=== PATIENT | female | born 1995 | race Caucasian/White ===

== ENCOUNTER 2019-04-24 19:01 | Emergency (ER) | payer MEDICAID ==
--- NOTE | 2019-04-24 19:50 | ER Document Report ---
ED Medical Screen (RME) - General Chief Complaint: Nausea/Vomiting Stated Complaint: VOMITING BLOOD Time Seen by Provider: 04/24/19 19:40 Primary Care Provider: MG GLORIA MD [Primary Care Provider] - Follow up as needed Mode of Arrival: Ambulatory Information source: Patient Notes: 24-year-old female patient presents the emergency department in her second tr imester with concerns for vomiting blood. Patient reports she woke up this morning, was not feeling too well and had one episode of bloody emesis. Patient denies any cough or congestion leading up to this. Denies any history of DVTs or PEs. She denies any chest pain or shortness of breath. Lung sounds clear and equal bilaterally, no acute distress noted. I have greeted and performed a rapid initial assessment of this patient. A comprehensive ED assessment and evaluation of the patient, analysis of test results and completion of the medical decision making process will be conducted by additional ED providers. I have specifically instructed the patient or family members with the patient to immediately return to any nursing staff should anything change in the patient's condition or with their chief complaint. TRAVEL OUTSIDE OF THE [place] IN LAST 30 DAYS: No - Related Data Allergies/Adverse Reactions: No Known Allergies Allergy (Verified 07/24/15 16:48) Past Medical History - Social History Chew tobacco use (# tins/day): No Frequency of alcohol use: None Drug Abuse: None Physical Exam - Vital signs Vitals: Temp Pulse Resp BP Pulse Ox 98.1 F 128 H 18 130/88 H 99 04/24/19 19:19 04/24/19 19:19 04/24/19 19:19 04/24/19 19:19 04/24/19 19:19 Course - Vital Signs Vital signs: Temp Pulse Resp BP Pulse Ox 98.1 F 128 H 18 130/88 H 99 04/24/19 19:19 04/24/19 19:19 04/24/19 19:19 04/24/19 19:19 04/24/19 19:19 Doctor's Discharge - Discharge Referrals: MG GLORIA MD [Primary Care Provider] - Follow up as needed
[2019-04-24 20:40] LABS: ABSOLUTE LYMPHOCYTES (AUTO) 1.4 10^3/uL (0.5-4.7); ABSOLUTE MONOCYTES (AUTO) 0.5 10^3/uL (0.1-1.4); ABSOLUTE NEUT (AUTO) 13.8 10^3/uL (1.7-8.2); BASOPHILS % (AUTO) 0.3 % (0-2); EOSINOPHILS % (AUTO) 0.1 % (0-6); HEMATOCRIT 36.2 % (36.0-47.0); HEMOGLOBIN 12.6 g/dL (12.0-15.5); LYMPHOCYTES % (AUTO) 9.1 % (13-45); MEAN CORPUSCULAR HGB CONC 34.7 g/dL (32.0-36.0); MEAN CORPUSCULAR VOLUME 84 fl (80-97); PLATELET COUNT 281 10^3/uL (150-450); RED BLOOD COUNT 4.33 10^6/uL (3.72-5.28); RED CELL DISTRIBUTION WIDTH 13.9 % (11.5-14.0); SEGMENTED NEUTROPHILS % (AUTO) 87.5 % (42-78); TOTAL CELLS COUNTED % (AUTO) 100 %; WHITE BLOOD COUNT 15.8 10^3/uL (4.0-10.5)
[2019-04-24 20:50] LABS: ALBUMIN 4.1 g/dL (3.5-5.0); ALKALINE PHOSPHATASE 86 U/L (38-126); ANION GAP 13 (5-19); ASPARTATE AMINO TRANSFERASE 20 U/L (14-36); BILIRUBIN,DIRECT 0.2 mg/dL (0.0-0.4); BILIRUBIN,TOTAL 0.7 mg/dL (0.2-1.3); BLOOD UREA NITROGEN 11 mg/dL (7-20); CALCIUM 9.4 mg/dL (8.4-10.2); CARBON DIOXIDE 21 mmol/L (22-30); CHLORIDE 101 mmol/L (98-107); GLUCOSE 82 mg/dL (75-110); TOTAL PROTEIN 7.5 g/dL (6.3-8.2)
[2019-04-24] MEDS ORDERED: NORMAL SALINE 1000 ML 1,000 ML IV ONE (20:53)
[2019-04-24] MEDS ORDERED: ONDANSETRON HCL INJ/PF 4 MG/2 ML SDV IV ONE (20:53)
--- NOTE | 2019-04-24 21:12 | ER Document Report ---
Entered by SELENE SMITH SCRIBE 04/24/192051 Acting as scribe for:NICOLASA LEWIS IV, MD ED GI/ - General Chief Complaint: Nausea/Vomiting Stated Complaint: VOMITING BLOOD Time Seen by Provider: 04/24/19 19:40 Primary Care Provider: MG GLORIA MD [Primary Care Provider] - Follow up as needed Mode of Arrival: Ambulatory Information source: Patient Notes: This 24 year old female patient who is currently x28 weeks presents to the ED today with complaints of nausea and vomiting with x1 episode of bloody emesis that began some time this morning. Patient reports that she woke up this morning not really feeling good and states that she had an headache. Patient states that throughout the day, she did not eat that much, but as soon as she did, she vomited. Patient notes that the emesis was initially chunky and blood, but states the blood cleared up on its own. Patient denies diarrhea or abdominal pain. TRAVEL OUTSIDE OF THE [place] IN LAST 30 DAYS: No - Related Data Allergies/Adverse Reactions: No Known Allergies Allergy (Verified 07/24/15 16:48) Past Medical History - General Information source: Patient - Social History Smoking Status: Former Smoker Cigarette use (# per day): No Chew tobacco use (# tins/day): No Smoking Education Provided: No Frequency of alcohol use: None Drug Abuse: None Family History: Reviewed & Not Pertinent Patient has suicidal ideation: No Patient has homicidal ideation: No Review of Systems - Review of Systems Constitutional: No symptoms reported EENT: No symptoms reported Cardiovascular: No symptoms reported Respiratory: No symptoms reported Gastrointestinal: See HPI, Nausea, Vomiting, Blood in vomit. denies: Abdominal pain, Diarrhea Genitourinary: No symptoms reported Female Genitourinary: See HPI, - x28 weeks Musculoskeletal: No symptoms reported Skin: No symptoms reported Hematologic/Lymphatic: No symptoms reported Neurological/Psychological: See HPI, Headaches -: Yes All other systems reviewed and negative Physical Exam - Vital signs Vitals: Temp Pulse Resp BP Pulse Ox 98.1 F 128 H 18 130/88 H 99 04/24/19 19:19 04/24/19 19:19 04/24/19 19:19 04/24/19 19:19 04/24/19 19:19 - General General appearance: Alert In distress: None - HEENT Head: Normocephalic, Atraumatic Eyes: Normal Pupils: PERRL - Respiratory Respiratory status: No respiratory distress Chest status: Nontender Breath sounds: Normal Chest palpation: Normal - Cardiovascular Rhythm: Regular Heart sounds: Normal auscultation Murmur: No - Abdominal Inspection: Gravid female Distension: Distended - Appropriately with gestation Bowel sounds: Normal Tenderness: Nontender Organomegaly: No organomegaly - Back Back: Normal, Nontender - Extremities General upper extremity: Normal inspection General lower extremity: Normal inspection - Neurological Neuro grossly intact: Yes - Psychological Associated symptoms: Normal affect, Normal mood - Skin Skin Temperature: Warm Skin Moisture: Dry Skin Color: Normal Course - Re-evaluation Re-evalutation: 04/24/19 22:28 Results of ED MSE discussed with patient and patient's significant other. All questions were answered prior to discharge. Emergency signs and symptoms, reasons to return to the emergency department discussed with patient and patient's significant other. - Vital Signs Vital signs: Temp Pulse Resp BP Pulse Ox 98.1 F 128 H 18 130/88 H 99 04/24/19 19:19 04/24/19 19:19 04/24/19 19:19 04/24/19 19:19 04/24/19 19:19 - Laboratory Result Diagrams: 04/24/19 20:20 04/24/19 20:20 Laboratory results interpreted by me: 04/24/19 04/24/19 20:20 20:20 WBC 15.8 H Lymph % (Auto) 9.1 L Absolute Neuts (auto) 13.8 H Seg Neutrophils % 87.5 H Sodium 134.5 L Carbon Dioxide 21 L Creatinine 0.50 L Discharge - Discharge Clinical Impression: Acute vomiting, Charito-Funez tear Condition: Good Disposition: HOME, SELF-CARE Instructions: Vomiting ([facility]) Additional Instructions: Return to the Emergency Department without delay if any worse. HOME CARE INSTRUCTIONS & INFORMATION: Thank you for choosing us for your medical needs. We hope you're satisfied with the care you received. After you leave, you must properly care for your problem and, at the same time, observe its progress. Any condition can change. Some illnesses can change rapidly over hours or days. If your condition worsens, return to the Emergency Department or see your physician promptly. ABOUT YOUR X-RAYS AND EKG'S: If you had an EKG or X-rays taken, they have been read by the Emergency Physician. The X-rays and EKG's will also be read by a Radiologist or Reel Hooker within 24 hours. If discrepancies are noted, you will be notified by telephone. Please be certain the ED has a correct telephone number & address where you can be reached. Also, realize that some fractures or abnormalities do not show up on initial X-rays. If your symptoms continue, see your physician. ABOUT YOUR LABORATORY TEST: If you had laboratory tests, the results have been reviewed by the Emergency Physician. Some test results (for example cultures) may not be available for several days. You will be contacted if any test result shows you need additional treatment. Please be certain the ED has a correct telephone number and address where you can be reached. ABOUT YOUR MEDICATIONS: You will receive instructions on how to take your medicine on the prescription label you receive. Additional information may be provided by the Pharmacy. If you have questions afterwards, call the ED for clarification or further instructions. Some prescribed medications may cause drowsiness. Do not perform tasks such as driving a car or operating machinery without consulting your Pharmacist. If you feel you need a refill of pain medication, your condition will need re-evaluation. Please do not call for a refill of any medication. ABOUT YOUR SIGNATURE: Signature of this document acknowledges to followin. Understanding that you received emergency treatment and that you may be released before al medical problems are known or treated. Please be certain the ED has a correct phone number & address where you can be reached. 2. Acknowledgement that you will arrange for follow-up care as recommended. 3. Authorization for the Emergency Physician to provide information to your follow-up Physician in order to maximize your care. AT ANY TIME, IF YOUR SYMPTOMS CHANGE SIGNIFICANTLY OR WORSEN OR YOU DEVELOP NEW SYMPTOMS, RETURN TO THE EMERGENCY DEPARTMENT IMMEDIATELY FOR RE-EVALUATION. OUR GOAL IS TO PROVIDE EXCELLENT MEDICAL CARE! WE HOPE THAT WE HAVE MET YOUR EXPECTATIONS DURING YOUR EMERGENCY DEPARTMENT VISIT AND THAT YOU FEEL YOU HAVE RECEIVED EXCELLENT CARE! Prescriptions: Ondansetron [Zofran Odt 4 mg Tablet] 1 tab PO Q8HP PRN #15 tab.rapdis PRN Reason: For Nausea/Vomiting Referrals: MG GLORIA MD [Primary Care Provider] - Follow up as needed I personally performed the services described in the documentation, reviewed and edited the documentation which was dictated to the scribe in my presence, and it accurately records my words and actions.
[2019-04-24 22:43] VITALS: BP 126/71
== END 2019-04-24 22:46 | disposition home or self-care (01) ==
LOC: ER 19:01
DX: O99.612 Diseases of the digestive system complicating pregnancy, second trimester (principal); K22.6 Gastro-esophageal laceration-hemorrhage syndrome; O21.9 Vomiting of pregnancy, unspecified; Z3A.28 28 weeks gestation of pregnancy; Z87.891 Personal history of nicotine dependence
CPT/HCPCS: 36415; 85025; 80053; J2405; J7030; 96361; 96374; 99284

== ENCOUNTER 2019-06-30 16:44 | Inpatient (IN) | payer MEDICAID ==
[2019-06-30 17:39] LABS: APPEARANCE,URINE CLOUDY; BILIRUBIN,URINE NEGATIVE (NEGATIVE); COLOR,URINE YELLOW; GLUCOSE, URINE NEGATIVE (NEGATIVE); KETONES,URINE NEGATIVE (NEGATIVE); LEUKOCYTE ESTERASE,URINE LARGE (NEGATIVE); NITRITE,URINE NEGATIVE (NEGATIVE); PROTEIN,URINE NEGATIVE (NEGATIVE); URINE SPECIFIC GRAVITY 1.005; UROBILINOGEN,URINE NEGATIVE mg/dL (<2.0)
[2019-06-30 17:47] LABS: ABSOLUTE EOSINOPHILS # (AUTO) 0.1 10^3/uL (0.0-0.6); ABSOLUTE LYMPHOCYTES (AUTO) 2.1 10^3/uL (0.5-4.7); ABSOLUTE MONOCYTES (AUTO) 0.8 10^3/uL (0.1-1.4); BASOPHILS % (AUTO) 0.3 % (0-2); EOSINOPHILS % (AUTO) 0.7 % (0-6); HEMATOCRIT 31.7 % (36.0-47.0); HEMOGLOBIN 10.5 g/dL (12.0-15.5); LYMPHOCYTES % (AUTO) 19.2 % (13-45); MEAN CORPUSCULAR HEMOGLOBIN 26.1 pg (27.0-33.4); MEAN CORPUSCULAR HGB CONC 33.1 g/dL (32.0-36.0); MEAN CORPUSCULAR VOLUME 79 fl (80-97); MONOCYTES % (AUTO) 7.2 % (3-13); PLATELET COUNT 294 10^3/uL (150-450); RED BLOOD COUNT 4.02 10^6/uL (3.72-5.28); RED CELL DISTRIBUTION WIDTH 15.5 % (11.5-14.0); SEGMENTED NEUTROPHILS % (AUTO) 72.6 % (42-78); TOTAL CELLS COUNTED % (AUTO) 100 %; WHITE BLOOD COUNT 11.1 10^3/uL (4.0-10.5)
[2019-06-30] MEDS ORDERED: ACETAMINOPHEN 325 MG TABLET PO ONE (18:00)
[2019-06-30 18:09] LABS: ALBUMIN 3.7 g/dL (3.5-5.0); ALKALINE PHOSPHATASE 116 U/L (38-126); ANION GAP 8 (5-19); ASPARTATE AMINO TRANSFERASE 18 U/L (14-36); BILIRUBIN,TOTAL 0.3 mg/dL (0.2-1.3); BLOOD UREA NITROGEN 8 mg/dL (7-20); CALCIUM 9.7 mg/dL (8.4-10.2); CARBON DIOXIDE 24 mmol/L (22-30); CHLORIDE 104 mmol/L (98-107); GLUCOSE 92 mg/dL (75-110); POTASSIUM 4.1 mmol/L (3.6-5.0); TOTAL PROTEIN 6.8 g/dL (6.3-8.2); URIC ACID 3.9 mg/dL (2.5-6.2)
[2019-06-30 18:10] LABS: UR PRO/CREAT RATIO RESULT 0.7 mg/mg (0.0-0.2); URINE CREATININE 36.3 mg/dL (16-327); URINE PROTEIN 24.3 mg/dL (<12)
[2019-06-30 18:21] LABS: URINE AMPHETAMINES SCREEN NEGATIVE; URINE BARBITURATES SCREEN NEGATIVE; URINE BENZODIAZEPINES SCREEN NEGATIVE; URINE COCAINE SCREEN NEGATIVE; URINE MARIJUANA (THC) SCREEN NEGATIVE; URINE METHADONE SCREEN NEGATIVE; URINE PHENCYCLIDINE SCREEN NEGATIVE
[2019-06-30] MEDS ORDERED: ACETAMINOPHEN 325 MG TABLET ONE (18:32)
[2019-06-30] MEDS ORDERED: ZOLPIDEM TARTRATE 5 MG TABLET PO PRN (19:06)
[2019-06-30] MEDS ORDERED: ACETAMINOPHEN 325 MG TABLET PO PRN (19:06)
[2019-06-30] MEDS ORDERED: MAG HYDROX/AL HYDROX/SIMETH SUSP 30 ML UDCUP PO PRN (19:06)
[2019-06-30] MEDS ORDERED: OXYTOCIN/NORMAL SALINE 20 UNIT/1,000 ML RTUINJ IV PRN (19:06)
[2019-06-30] MEDS ORDERED: DINOPROSTONE 10 MG VAGINAL INSERT.SR PV ONE (19:06)
--- NOTE | 2019-06-30 19:06 | Admission Physical ---
Datetime Report Generated by CPN: 06/30/2019 19:05 CURRENT ADMISSION Chief Complaint Other: Increased BP Indication for Induction- Other: Pre E Admit Impression : Term, Intrauterine ; Intact Membranes; Induction of Labor Admit Plan: Admit to Unit; Initiate Labor Induction Protocol ALLERGIES Medication Allergies: No Medication Allergies: No Known Allergies (07/24/2015) Latex: No Latex Allergies OBSTETRICAL HISTORY EDC: 07/15/2019 00:00 : 2 Para: 1 Term: 0 : 1 SAB: 0 IAB: 0 Ectopic: 0 Livin Cesareans: 0 VBACs: 0 Multiple Births: 0 SEE RECORDS Alcohol: No Marijuana : No Cocaine: No Other Illicit Drugs: No Cigarettes: Former Smoker. [id number] PHYSICAL EXAM General: Normal HEENT: Normal Neurologic: Normal Thyroid: Normal Heart: Normal Lungs: Normal Breast: Deferred Back: Normal Abdomen: Normal Genitourinary Exam: Normal Extremities: Normal DTRs: Normal Pelvic Type: Adequate Vital Signs: Reviewed VAGINAL EXAM Dilatation: 0 Effacement: 0 Station: -2 MEMBRANES Pooling: Negative Membranes: Intact FETUS A Monitoring: External US FHR- Baseline: 120 Variability: Moderate 6-25bpm FHR Category: Category I Presentation: Vertex Admit Comment: Admit for cervadil PLANS FOR LABOR AND DELIVERY Labor and Delivery: None Pain Management: Epidural Feeding Preference: Both Benefit of Breast Feed Discussed: Yes Circumcision: Yes INFORMED CONSENT Signature: with User ID: [email or web address]
[2019-06-30] MEDS ORDERED: DINOPROSTONE 10 MG VAGINAL INSERT.SR ONE (21:25)
[2019-06-30] MEDS ORDERED: ZOLPIDEM TARTRATE 5 MG TABLET ONE (23:37)
[2019-07-01] MEDS ORDERED: ACETAMINOPHEN 325 MG TABLET PO PRN ×2 (08:38→20:47)
[2019-07-01] MEDS ORDERED: ACETAMINOPHEN 325 MG TABLET ONE (08:46)
[2019-07-01 09:15] LABS: HEMATOCRIT 31.7 % (36.0-47.0); HEMOGLOBIN 10.8 g/dL (12.0-15.5); MEAN CORPUSCULAR HEMOGLOBIN 26.8 pg (27.0-33.4); MEAN CORPUSCULAR HGB CONC 33.9 g/dL (32.0-36.0); MEAN CORPUSCULAR VOLUME 79 fl (80-97); PLATELET COUNT 249 10^3/uL (150-450); RED BLOOD COUNT 4.01 10^6/uL (3.72-5.28); RED CELL DISTRIBUTION WIDTH 15.8 % (11.5-14.0); WHITE BLOOD COUNT 10.8 10^3/uL (4.0-10.5)
[2019-07-01 09:35] LABS: ALBUMIN 3.7 g/dL (3.5-5.0); ALKALINE PHOSPHATASE 126 U/L (38-126); ANION GAP 9 (5-19); ASPARTATE AMINO TRANSFERASE 21 U/L (14-36); BILIRUBIN,DIRECT 0.2 mg/dL (0.0-0.4); BILIRUBIN,TOTAL 0.6 mg/dL (0.2-1.3); BLOOD UREA NITROGEN 7 mg/dL (7-20); CALCIUM 10.1 mg/dL (8.4-10.2); CARBON DIOXIDE 23 mmol/L (22-30); CHLORIDE 103 mmol/L (98-107); GLUCOSE 116 mg/dL (75-110); POTASSIUM 3.7 mmol/L (3.6-5.0); TOTAL PROTEIN 6.6 g/dL (6.3-8.2); URIC ACID 4.2 mg/dL (2.5-6.2)
[2019-07-01] MEDS ORDERED: LIDOCAINE 1% INJ-PF (10 MG/ML) 30 ML SDV ONE (09:38)
[2019-07-01] MEDS ORDERED: OXYTOCIN 10 UNIT/ML VIAL ONE (09:38)
[2019-07-01] MEDS ORDERED: MISOPROSTOL 0.2 MG TABLET ONE (09:38)
[2019-07-01] MEDS ORDERED: OXYTOCIN/NORMAL SALINE 20 UNIT/1,000 ML RTUINJ ONE (09:39)
[2019-07-01] MEDS ORDERED: OXYTOCIN/NORMAL SALINE 20 UNIT/1,000 ML RTUINJ IV PRN ×2 (11:22→20:47)
[2019-07-01] MEDS ORDERED: MAG HYDROX/AL HYDROX/SIMETH SUSP 30 ML UDCUP ONE ×2 (11:27→20:47)
[2019-07-01] MEDS ORDERED: PROMETHAZINE HCL INJ 25 MG/1 ML VIAL IV ONE (14:45)
[2019-07-01] MEDS ORDERED: HYDROMORPHONE HCL INJ/PF 2 MG/ML AMPULE IV ONE (14:45)
[2019-07-01] MEDS: RINGERS SOLUTION,LACTATED 1,000 ML IV PRN ×2 (15:15→17:12)
[2019-07-01] MEDS ORDERED: FENTANYL/BUPIVACAINE/NS/PF 300 MCG/150 ML RTUINJ EPI ONE (15:44)
[2019-07-01] MEDS ORDERED: EPHEDRINE SULFATE INJ 50 MG/1 ML AMPULE ONE (15:44)
[2019-07-01] MEDS ORDERED: BUPIVACAINE HCL 0.25 % INJ/PF (2.5 MG/1 ML) 30 ML VIAL ONE (15:45)
[2019-07-01] MEDS ORDERED: PHENYLEPHRINE HCL INJ/PF 10 MG/1 ML SDV ONE (16:46)
[2019-07-01] MEDS ORDERED: FENTANYL CITRATE INJ/PF 100 MCG/2 ML AMPUL ONE (16:47)
[2019-07-01] MEDS ORDERED: NA PHOS,M-B/NA PHOS,DI-BA (ADULT) 133 ML ENEMA PR PRN (20:47)
[2019-07-01] MEDS ORDERED: BENZOCAINE/MENTHOL AEROSOL SPRAY 56 ML TOP PRN (20:47)
[2019-07-01] MEDS ORDERED: ACETAMINOPHEN WITH CODEINE #3 TABLET PO PRN (20:47)
[2019-07-01] MEDS ORDERED: GLYCERIN/WITCH HAZEL LEAF 1 EACH MED..WIPE TP PRN (20:47)
[2019-07-01] MEDS ORDERED: PSEUDOEPHEDRINE HCL 30 MG TABLET PO PRN (20:47)
[2019-07-01] MEDS ORDERED: PROMETHAZINE HCL INJ 25 MG/1 ML VIAL IV PRN (20:47)
[2019-07-01] MEDS ORDERED: PROMETHAZINE HCL 25 MG TABLET PO PRN (20:47)
[2019-07-01] MEDS ORDERED: DIPH/PERTUSS(ACELL)/TETANUS VAC/PF 0.5 ML SYR (>=10YO) IM PRN (20:47)
[2019-07-01] MEDS ORDERED: DIPHENHYDRAMINE HCL 25 MG CAPSULE PO PRN (20:47)
[2019-07-01] MEDS ORDERED: DIBUCAINE 1% OINTMENT 28 GM TP PRN (20:47)
[2019-07-01] MEDS ORDERED: PROMETHAZINE HCL 25 MG SUPP.RECT PR PRN (20:47)
[2019-07-01] MEDS ORDERED: MAGNESIUM HYDROXIDE SUSP 30 ML UDCUP PO PRN (20:47)
[2019-07-01] MEDS ORDERED: MEASLES,MUMPS&RUBELLA VACC/PF 0.5 ML VIAL SUBCUT PRN (20:47)
[2019-07-01] MEDS ORDERED: ZOLPIDEM TARTRATE 5 MG TABLET PO PRN (20:47)
[2019-07-01] MEDS ORDERED: IBUPROFEN 800 MG TABLET ONE (21:41)
--- NOTE | 2019-07-01 22:37 | Delivery Summary ---
Del Sum A-C Datetime Report Generated by CPN: 07/01/2019 22:37 DELIVERY PERSONNEL DELIVERY PERSONNEL: [id number] Delivery Doctor:: Chana Tay MD Labor and Delivery Nurse:: Karla Grullon RN Nursery Nurse:: Macy Britton RN Diversity Manager/MANAGER OF INTERNAL: Meghan Vito, ST MATERNAL INFORMATION Delivery Anesthesia: Epidural Medications After Delivery: Pitocin Bolus-Please Comment Meds After Delivery Comment: Pitocin 20 units/1000ml NSS Estimated Blood Loss (ml): 50 Maternal Complications: None Provider Comments: VMI delivered in [place] presentation with compound right hand. to maternal abdomen for NRP. Shoulders and body delivered without difficulty. Placenta delivered intact spontaneously. FF at U. Periurethral laceration repaired with good hemostasis. Cord doubly clamped and cut. Mother and baby stable upon provider leaving the room. LABOR SUMMARY EDC: 07/15/2019 00:00 No. Babies in Womb: 1 Attempted: No Labor Anesthesia: Epidural LABOR INFORMATION Reason for Induction: Pre-Eclampsia Onset of Labor: 07/01/2019 15:20 Complete Dilatation: 07/01/2019 19:43 Cervical Ripening Agents: Cervidil Other Ripening Agents: Cervidil removed Oxytocin: Induction Group B Beta Strep: Negative Antibiotics # of Doses: N/A Antibiotics Time of Last Dose: N/A Name of Antibiotic Given: N/A Steroids Given: None Reason Steroids Not Administered: Not Applicable MEMBRANES Membranes Rupture Method: Artificial Rupture of Membranes: 07/01/2019 15:20 Length of Rupture (hr): 4.92 Amniotic Fluid Color: Clear Amniotic Fluid Amount: Large Amniotic Fluid Odor: Normal STAGES OF LABOR Stage 1 hr: 4 Stage 1 min: 23 Stage 2 hr: 0 Stage 2 min: 32 Stage 3 hr: 0 Stage 3 min: 4 Total Time in Labor hr: 4 Total Time in Labor min: 59 VAGINAL DELIVERY Episiotomy: None Laceration #1: Periurethral Laceration Extension #1: N/A Laceration Repair: Yes Sponge Count Correct: Yes Sharps Count Correct: Yes CSECTION DELIVERY Primary Indication: N/A Secondary Indication: N/A CSection Incidence: N/A Labor: N/A Elective: N/A CSection Incision: N/A BABY A INFORMATION Delivery Date/Time: 07/01/2019 20:15 Method of Delivery: Vaginal Nurse Controlled Delivery: No Born in Route : No : N/A Forceps: N/A Vacuum Extraction: N/A Shoulder Dystocia : No PRESENTATION/POSITION BABY A Presentation: Cephalic Cephalic Presentation: Vertex Vertex Position: Right Occipital Anterior Breech Presentation: N/A PLACENTA INFORMATION BABY A Placenta Delivery Time : 07/01/2019 20:19 Placenta Method of Delivery: Spontaneous Placenta Status: Delivered SCORES BABY A Heart Rate 1 min: >100 bpm Resp Effort 1 min: Good Cry Reflex Irritability 1 min: Cough or Sneeze or Pulls Away Muscle Tone 1 min: Active Motion Color 1 min: Body [place], Extremities Blue Resuscitation Effort 1 min: Tactile Stimulation SCORE 1 MIN: 9 Heart Rate 5 min: >100 bpm Resp Effort 5 min: Good Cry Reflex Irritability 5 min: Cough or Sneeze or Pulls Away Muscle Tone 5 min: Active Motion Color 5 min: Body [place], Extremities Blue Resuscitation Effort 5 min: Tactile Stimulation SCORE 5 MIN: 9 INFORMATION BABY A Gestational Age at Delivery: 38.0 Gestational Status: Early Term- 37- 38.6 Weeks Outcome : Liveborn Condition : Stable Sex: Male IDENTIFICATION BABY A Verification Date/Time: 07/01/2019 20:26 ID Band Number: [id number] Mother's Name Verified: Yes Infant RN Verifying Infant: Terrence, RN/Yaw, RN WEIGHT/LENGTH BABY A Birthweight (gm): 3057 Infant Weight (lb): 6 Weight (oz): 12 Length (in): 20.00 Infant Length (cm): 50.80 CORD INFORMATION BABY A No. Cord Vessels: 3 Nuchal Cord : N/A Cord Blood Taken: Yes-For Storage (Mom's Blood type +) Suction: None ASSESSMENT BABY A Skin to Skin: Yes BABY B INFORMATION : N/A SIGNATURES Signature: with User ID: [email or web address] : I was personally available for consultation and serving as supervising physician for the MLP.
[2019-07-02] MEDS: FAMOTIDINE 20 MG TABLET PO SCH ×3 (00:30→21:25)
[2019-07-02] MEDS: IBUPROFEN 800 MG TABLET PO SCH ×4 (00:30→21:24)
[2019-07-02 06:54] LABS: HEMATOCRIT 29.7 % (36.0-47.0); HEMOGLOBIN 9.8 g/dL (12.0-15.5); MEAN CORPUSCULAR HEMOGLOBIN 26.5 pg (27.0-33.4); MEAN CORPUSCULAR HGB CONC 33.1 g/dL (32.0-36.0); MEAN CORPUSCULAR VOLUME 80 fl (80-97); PLATELET COUNT 253 10^3/uL (150-450); RED BLOOD COUNT 3.71 10^6/uL (3.72-5.28); RED CELL DISTRIBUTION WIDTH 15.8 % (11.5-14.0); WHITE BLOOD COUNT 15.2 10^3/uL (4.0-10.5)
[2019-07-02] MEDS: PRENATAL VITAMIN W DHA CAPSULE PO SCH (09:19)
[2019-07-02] MEDS: FERROUS SULFATE 325 MG TABLET PO SCH ×2 (09:19→17:21)
[2019-07-02] MEDS: SENNOSIDES/DOCUSATE 8.6-50 MG 1 EACH TABLET PO SCH (09:19)
[2019-07-02] MEDS: DOCUSATE SODIUM 100 MG CAPSULE PO SCH ×2 (09:19→17:21)
--- NOTE | 2019-07-02 10:00 | PDOC PROGRESS REPORT ---
Subjective-OB Progress Note for:: 07/02/19 Subjective: Pt doing well, no concerns. She reports light bleeding, reg diet and voiding without difficulty. No concerns. Physical Exam (OB) Vital Signs: Temp Pulse Resp BP Pulse Ox 98.3 F 95 18 131/77 H 98 07/02/19 07:21 07/02/19 07:21 07/02/19 07:21 07/02/19 07:21 07/02/19 07:21 Intake & Output 07/01/19 07/02/19 07/03/19 06:59 06:59 06:59 Intake Total 244 1000 Output Total 1200 Balance 244 -200 Weight 104.2 kg - PIH/Pre-Eclampsia Clonus: Negative Headache: Absent Epigastric Pain: No Visual Changes: No - Lochia Lochia Amount: Small 10-25 ml Lochia Color: Rubra/Red - Abdomen Description: Soft Hernia Present: No Fundal Description: Firm, Midline Fundal Height: u/u - u/2 Objective-Diagnostic Laboratory: 07/02/19 06:22 07/01/19 08:55 07/01/19 07/02/19 09:37 06:22 WBC 15.2 H RBC 3.71 L Hgb 9.8 L Hct 29.7 L MCV 80 MCH 26.5 L MCHC 33.1 RDW 15.8 H Plt Count 253 Blood Type A POSITIVE Antibody Screen NEGATIVE Assessment and Plan(PN) - Assessment and Plan (1) Periurethral abrasion, delivered, current hospitalization Is this a current diagnosis for this admission?: Yes (2) Vaginal delivery Is this a current diagnosis for this admission?: Yes (3) History of SYEDA positive for HSV Is this a current diagnosis for this admission?: Yes (4) Pre-eclampsia affecting , antepartum Is this a current diagnosis for this admission?: Yes - Time Spent with Patient Time with patient: Less than 15 minutes Medications reviewed and adjusted accordingly: Yes - Disposition Anticipated Discharge: Home Within: within 24 hours
[2019-07-02] MEDS: ACETAMINOPHEN WITH CODEINE #3 TABLET PO PRN (13:03)
[2019-07-03] MEDS: IBUPROFEN 800 MG TABLET PO SCH ×2 (06:06→14:38)
[2019-07-03] MEDS: ACETAMINOPHEN WITH CODEINE #3 TABLET PO PRN ×2 (06:13→14:39)
[2019-07-03] MEDS: SENNOSIDES/DOCUSATE 8.6-50 MG 1 EACH TABLET PO SCH (10:07)
[2019-07-03] MEDS: FAMOTIDINE 20 MG TABLET PO SCH (10:07)
[2019-07-03] MEDS: DOCUSATE SODIUM 100 MG CAPSULE PO SCH (10:07)
[2019-07-03] MEDS: FERROUS SULFATE 325 MG TABLET PO SCH (10:07)
[2019-07-03] MEDS: PRENATAL VITAMIN W DHA CAPSULE PO SCH (10:07)
--- NOTE | 2019-07-03 11:25 | PDOC PROGRESS REPORT ---
Subjective-OB Progress Note for:: 07/03/19 Subjective: feeling well, no complaints. she was able to void a small amount 2 times today Physical Exam (OB) Vital Signs: Temp Pulse Resp BP Pulse Ox 97.8 F 85 18 138/98 H 100 07/03/19 11:01 07/03/19 11:01 07/03/19 11:01 07/03/19 11:01 07/03/19 11:01 Intake & Output 07/02/19 07/03/19 07/04/19 06:59 06:59 06:59 Intake Total 244 1600 Output Total 2645 Balance 244 -1045 - PIH/Pre-Eclampsia DTR's: 1 + Clonus: Negative Headache: Absent Epigastric Pain: No Visual Changes: No - Lochia Lochia Amount: Scant < 10 ml Lochia Color: Rubra/Red - Abdomen Description: Soft, Round Hernia Present: No Fundal Description: Firm, Midline Fundal Height: u/u - u/2 Objective-Diagnostic Laboratory: 07/02/19 06:22 07/01/19 08:55 Assessment and Plan(PN) - Assessment and Plan (1) Periurethral abrasion, delivered, current hospitalization Is this a current diagnosis for this admission?: Yes (2) Vaginal delivery Is this a current diagnosis for this admission?: Yes (3) History of SYEDA positive for HSV Is this a current diagnosis for this admission?: Yes (4) Pre-eclampsia affecting , antepartum Is this a current diagnosis for this admission?: Yes (5) Acute urinary retention Is this a current diagnosis for this admission?: Yes - Time Spent with Patient Time with patient: Less than 15 minutes Medications reviewed and adjusted accordingly: Yes - Disposition Anticipated Discharge: Home Within: within 24 hours
--- NOTE | 2019-07-03 11:37 | PDOC DISCHARGE SUMMARY ---
Impression - Admit/DC Date/PCP Admission Date/Primary Care Provider: 06/30/19 19:20 ISAI HUA MD Discharge Date: 07/03/19 - Discharge Diagnosis (1) Periurethral abrasion, delivered, current hospitalization Is this a current diagnosis for this admission?: Yes (2) Vaginal delivery Is this a current diagnosis for this admission?: Yes (3) History of SYEDA positive for HSV Is this a current diagnosis for this admission?: Yes (4) Pre-eclampsia affecting , antepartum Is this a current diagnosis for this admission?: Yes (5) Acute urinary retention Is this a current diagnosis for this admission?: Yes - Additional Information Resuscitation Status: Full Code Discharge Diet: Regular Discharge Activity: Balance Activity w/Rest, Pelvic Rest Referrals: ISAI HUA MD [Primary Care Provider] - Prescriptions: Ibuprofen [Motrin 800 mg Tablet] 800 mg PO Q8HP PRN #60 tablet PRN Reason: Home Medications: Pnv,Calcium 72/Iron/Folic Acid [Pnv Plus Multivit Tab] 1 tab PO DAILY 07/19/15 Valacyclovir HCl [Valtrex 500 mg Tablet] 1 tab PO DAILY 07/01/19 Ibuprofen [Motrin 800 mg Tablet] 800 mg PO Q8HP PRN #60 tablet 07/03/19 HPI Reason(s) for Admission: Induction of Labor, PIH Procedures: NST, Management of Obstetric Complications Intrapartum Procedure(s): Spontaneous Vaginal Delivery Complication(s): Laceration-Perineal Laceration-Degree: 1st Results Laboratory Results: WBC 15.2 10^3/uL (4.0-10.5) H 07/02/19 06:22 RBC 3.71 10^6/uL (3.72-5.28) L 07/02/19 06:22 Hgb 9.8 g/dL (12.0-15.5) L 07/02/19 06:22 Hct 29.7 % (36.0-47.0) L 07/02/19 06:22 MCV 80 fl (80-97) 07/02/19 06:22 MCH 26.5 pg (27.0-33.4) L 07/02/19 06:22 MCHC 33.1 g/dL (32.0-36.0) 07/02/19 06:22 RDW 15.8 % (11.5-14.0) H 07/02/19 06:22 Plt Count 253 10^3/uL (150-450) 07/02/19 06:22 Lymph % (Auto) 19.2 % (13-45) 06/30/19 17:25 [place] % (Auto) 7.2 % (3-13) 06/30/19 17:25 Eos % (Auto) 0.7 % (0-6) 06/30/19 17: Baso % (Auto) 0.3 % (0-2) 06/30/19 17: Absolute Neuts (auto) 8.0 10^3/uL (1.7-8.2) 06/30/19: Absolute Lymphs (auto) 2.1 10^3/uL (0.5-4.7) 06/30/19 17: Absolute Monos (auto) 0.8 10^3/uL (0.1-1.4) 06/30/19: Absolute Eos (auto) 0.1 10^3/uL (0.0-0.6) 06/30/19 17:25 Absolute Basos (auto) 0.0 10^3/uL (0.0-0.2) 06/30/19 17:25 Seg Neutrophils % 72.6 % (42-78) 06/30/19 17:25 Sodium 135.2 mmol/L (137-145) L 07/01/19 08:55 Potassium 3.7 mmol/L (3.6-5.0) 07/01/19 08:55 Chloride 103 mmol/L (98-107) 07/01/19 08:55 Carbon Dioxide 23 mmol/L (22-30) 07/01/19 08:55 Anion Gap 9 (5-19) 07/01/19 08:55 BUN 7 mg/dL (7-20) 07/01/19 08:55 Creatinine 0.53 mg/dL (0.52-1.25) 07/01/19 08:55 Est GFR ( Amer) > 60 (>60) 07/01/19 08:55 Est GFR (MDRD) Non-Af > 60 (>60) 07/01/19 08:55 Glucose 116 mg/dL (75-110) H 07/01/19 08:55 Uric Acid 4.2 mg/dL (2.5-6.2) 07/01/19 08:55 Calcium 10.1 mg/dL (8.4-10.2) 07/01/19 08:55 Total Bilirubin 0.6 mg/dL (0.2-1.3) 07/01/19 08:55 Direct Bilirubin 0.2 mg/dL (0.0-0.4) 07/01/19 08:55 Neonat Total Bilirubin Not Reportable 07/01/19 08:55 Neonat Direct Bilirubin Not Reportable 07/01/19 08:55 Neonat Indirect Bili Not Reportable 07/01/19 08:55 AST 21 U/L (14-36) 07/01/19 08:55 ALT 22 U/L (<35) 07/01/19 08:55 Alkaline Phosphatase 126 U/L (38-126) 07/01/19 08:55 Lactate Dehydrogenase 118 U/L (120-246) L 07/01/19 08:55 Total Protein 6.6 g/dL (6.3-8.2) 07/01/19 08:55 Albumin 3.7 g/dL (3.5-5.0) 07/01/19 08:55 Urine Color YELLOW 06/30/19 16:58 Urine Appearance CLOUDY 06/30/19 16:58 Urine pH 7.0 (5.0-9.0) 06/30/19 16:58 Ur Specific [place] 1.005 06/30/19 16:58 Urine Protein NEGATIVE mg/dL (NEGATIVE) 06/30/19 16:58 Urine Glucose (UA) NEGATIVE mg/dL (NEGATIVE) 06/30/19 16:58 Urine Ketones NEGATIVE mg/dL (NEGATIVE) 06/30/19 16:58 Urine Blood SMALL (NEGATIVE) H 06/30/19 16:58 Urine Nitrite NEGATIVE (NEGATIVE) 06/30/19 16:58 Urine Bilirubin NEGATIVE (NEGATIVE) 06/30/19 16:58 Urine Urobilinogen NEGATIVE mg/dL (<2.0) 06/30/19 16:58 Ur Leukocyte Esterase LARGE (NEGATIVE) H 06/30/19 16:58 Urine WBC (Auto) 30 /HPF 06/30/19 16:58 Urine RBC (Auto) 5 /HPF 06/30/19 16:58 Urine Bacteria (Auto) 3+ /HPF 06/30/19 16:58 Squamous Epi Cells Auto 10 /HPF 06/30/19 16:58 Urine Mucus (Auto) RARE /LPF 06/30/19 16:58 Urine Creatinine 36.3 mg/dL (16-327) 06/30/19 16:58 Protein/Creatinin Ratio 0.7 mg/mg (0.0-0.2) H 06/30/19 16:58 Urine Total Protein 24.3 mg/dL (<12) H 06/30/19 16:58 Urine Ascorbic Acid NEGATIVE (NEGATIVE) 06/30/19 16:58 Urine Opiates Screen NEGATIVE 06/30/19 16:58 Urine Methadone Screen NEGATIVE 06/30/19 16:58 Ur Barbiturates Screen NEGATIVE 06/30/19 16:58 Ur Phencyclidine Scrn NEGATIVE 06/30/19 16:58 Ur Amphetamines Screen NEGATIVE 06/30/19 16:58 U Benzodiazepines Scrn NEGATIVE 06/30/19 16:58 Urine Cocaine Screen NEGATIVE 06/30/19 16:58 U Marijuana (THC) Screen NEGATIVE 06/30/19 16:58 RPR NONREACTIVE (NONREACTIVE) 07/01/19 09:37 Blood Type A POSITIVE 07/01/19 09:37 Antibody Screen NEGATIVE 07/01/19 09:37 Plan Plan of Treatment: monitor abilty to void, if post void residual is more than 100cc then replace FC with leg bag and have her f/u at [facility] on Friday will then start her on Urecholine and macrobid per Dr. Keith orders monitor BP, if severe range bp then cancel discharge and we will evaluate BPs overnight Time Spent: Less than 30 Minutes
[2019-07-03] MEDS ORDERED: LIDOCAINE 2% URO-JET 5 ML KIT MM ONE (16:00)
[2019-07-03 17:49] VITALS: BP 131/91
== END 2019-07-03 17:38 | disposition home or self-care (01) | DRG 807 ==
LOC: LC 16:44 → LR 19:20 → 2S 07-01 22:55
PROVIDERS: ADMIT Obstetrics & Gynecology; ATTEND Student in an Organized Health Care Education/Training Program
PROC: 10E0XZZ Delivery of Products of Conception, External Approach (ICD-10-PCS; principal; 2019-07-01)
PROC: 10907ZC Drainage of Amniotic Fluid, Therapeutic from Products of Conception, Via Natural or Artificial Opening (ICD-10-PCS; 2019-07-01)
PROC: 0UQMXZZ Repair Vulva, External Approach (ICD-10-PCS; 2019-07-01)
DX: O14.94 Unspecified pre-eclampsia, complicating childbirth (principal); Z37.0 Single live birth; O32.6XX0 Maternal care for compound presentation, not applicable or unspecified; O71.82 Other specified trauma to perineum and vulva; Z3A.38 38 weeks gestation of pregnancy; Z87.891 Personal history of nicotine dependence; R33.9 Retention of urine, unspecified; O99.89 Other specified diseases and conditions complicating pregnancy, childbirth and the puerperium; Z86.19 Personal history of other infectious and parasitic diseases
CPT/HCPCS: 36415; 80053; 80307; 81001; 82570; 83615; 84156; 84550; 85025; 85027; 86592; 86850; 86900; 86901; C1726; J2370; J2590; J3010; J3490